=== PATIENT | male | born 1970 | race Caucasian/White ===

== ENCOUNTER 2022-11-19 10:38 | Observation (INO) ==
--- NOTE | 2022-11-19 11:37 | DR.ABDMALE ---
HPI Time seen Time Seen by Provider: 11/19/22 11:33 PCP Primary Care Physician: DR BAUTISTA Complaint Chief Complaint:: PT C/O 1 WEEK HISTORY OF INTERMITTENT FEVER UP TO 102 ASSOCIATED WITH LEFT SIDED ABDOMINAL PAIN DESCRIBED CONSTANT DULL ACHING PAIN . PAIN IS ASSOCIATED WITH NAUSEA BUT DENIES VOMITING. Self Treatment fo Chief Complaint: PT WAS SEEN BY PCP AND HAS COMPLETED FULL COURSE OF CEFDINIR. PT HAD LABS DRAWN AT PCP OFFICE AND WERE ALL WNL EXCEPT ELEVATED LFTS. PT HAS ALSO BEEN ON A SOFT DIET WITH NO IMPROVEMENT OF SYMPTOMS. PT LAST HAD MOTRIN AROUND 930 AM TODAY. COVID-19 Coronavirus risk:travel/contact w/high risk person: No Has patient experienced Coronavirus symptoms: No Reviewed Nurses Notes Review: Yes Mode of arrival Mode of Arrival: Ambulatory Timing Onset of Chief Complaint: 11/13/22 PMH PMH Past Medical History: Yes Past Medical History: Diabetes, Dyslipidemia and Hypertension Past Surgical History: No Family History History of Family Medical Conditions: Yes Family Medical History: Cancer Family Medical History Comment: THROAT CANCER, MULTIPLE SCLEROSIS Social History Does patient currently use any type of tobacco product: Yes Have you used tobacco products in the last 12 months: Yes Type of Tobacco Use: Smokeless Does any household member use tobacco: No Alcohol Use: DAILY Do you use any recreational Drugs:: No Lives With: Spouse Lives Where: Home Travel Risk Coronavirus risk:travel/contact w/high risk person: No Has patient experienced Coronavirus symptoms: No Infectious screening In the last 2 months have you had wt loss of >10#?: NO Have you had fever, night sweats or hemotysis?: No Have you traveled outside the country in the last 6 months?: No Isolation: Standard ROS Review of Systems Constitutional: No Symptoms Reported Eyes: No Symptoms Reported ENTM: No Symptoms Reported Respiratoy: No Symptoms Reported Cardiovascular: No Symptoms Reported Gastrointestinal/Abdominal: No Symptoms Reported Genitourinary: No Symptoms Reported Neurological: No Symptoms Reported Musculoskeletal: No Symptoms Reported Integumentary: No Symptoms Reported Hematologic/Lymphatic: No Symptoms Reported Endocrine: No Symptoms Reported Psychiatric: No Symptoms Reported All Other Systems: Reviewed and Negative PE Vital Signs Vital Signs: Temp Pulse Resp BP Pulse Ox O2 Del Method 11/19/22 14:28 18 11/19/22 10:50 98.2 F 81 20 113/77 98 Room Air General Limitations: No Limitations General Appearance: Alert Head Head Exam: Normal Inspection Eyes Eye exam: Normal Appearance ENT ENT Exam: Normal Exam Neck Neck Exam: Normal Inspection Chest Chest Inspection: Normal Inspection Respiratory Respiratory Exam: Normal Lung Sounds Bilat Cardiovascular Cardiovascular Exam: Regular Rate Abdominal Exam Abdominal Exam: Normal Inspection Rectal Rectal Exam: Deferred Back Back Exam: Normal Inspection Extremeties Extremities Exam: Normal Inspection Exam: Male: Normal Inspection Neurologic Neurological Exam: Alert Psychiatric Psychiatric Exam: Normal Affect Skin Skin Exam: Intact ROR Labs Reviewed Result Diagrams: 11/19/22 11:58 11/19/22 11:58 Laboratory: WBC 4.4 X10^3/uL (3.6-10.0) 11/19/22 11:58 RBC 5.07 X10^6/uL (4.7-6.0) 11/19/22 11:58 Hgb 15.9 g/dL (13.5-18.0) 11/19/22 11:58 Hct 44.6 % (42.0-54.0) 11/19/22 11:58 MCV 88.0 fL (80.0-100.0) 11/19/22 11:58 MCH 31.3 pg (27.0-34.0) 11/19/22 11:58 MCHC 35.5 g/dL (33.0-35.0) H 11/19/22 11:58 RDW 12.5 % (11.6-16.5) 11/19/22 11:58 Plt Count 189 X10^3/uL (150.0-450.0) 11/19/22 11:58 MPV 7.6 fL (7.4-11.0) 11/19/22 11:58 Neut % (Auto) 77.5 % (42.0-75.0) H 11/19/22 11:58 Lymph % (Auto) 10.4 % (21.0-51.0) L 11/19/22 11:58 [place] % (Auto) 10.7 % (0.0-13.0) 11/19/22 11:58 Eos % (Auto) 0.7 % (0.9-2.9) L 11/19/22 11:58 Baso % (Auto) 0.7 % (0.2-1.0) 11/19/22 11:58 Neut # (Auto) 3.4 x10^3/uL (2.2-4.8) 11/19/22 11:58 Lymph # (Auto) 0.5 X10^3/uL (1.3-2.9) L 11/19/22 11:58 [place] # (Auto) 0.5 x10^3/uL (0.3-0.8) 11/19/22 11:58 Eos # (Auto) 0.0 x10^3/uL (0.0-0.2) 11/19/22 11:58 Baso # (Auto) 0.0 X10^3/uL (0.0-0.1) 11/19/22 11:58 Absolute Nucleated RBC 0.0 /100WBC 11/19/22 11:58 Sodium 134 mmol/L (136-145) L 11/19/22 11:58 Corrected Sodium 134 mmol/L (136-145) L 11/19/22 11:58 Potassium 4.4 mmol/L (3.5-5.1) 11/19/22 11:58 Chloride 96 mmol/L (98-107) L 11/19/22 11:58 Carbon Dioxide 29.5 mmol/L (21-32) 11/19/22 11:58 BUN 18 mg/dL (7-18) 11/19/22 11:58 Creatinine 1.14 mg/dL (0.70-1.30) 11/19/22 11:58 Est GFR (MDRD) Af Amer > 60 (>60) 11/19/22 11:58 Est GFR (MDRD) Non-Af > 60 (>60) 11/19/22 11:58 Glucose 113 mg/dL (65-99) H 11/19/22 11:58 Calcium 9.4 mg/dL (8.5-10.1) 11/19/22 11:58 Corrected Calcium TNP 11/19/22 11:58 Total Bilirubin 1.70 mg/dL (0.2-1.0) H 11/19/22 11:58 AST 75 Units/L (15-37) H 11/19/22 11:58 ALT 171 Units/L (12-78) H 11/19/22 11:58 Alkaline Phosphatase 147 Units/L (46-116) H 11/19/22 11:58 Total Protein 8.1 g/dL (6.4-8.2) 11/19/22 11:58 Albumin 4.1 g/dL (3.4-5.0) 11/19/22 11:58 Globulin 4.0 g/dL (2.5-4.5) 11/19/22 11:58 Albumin/Globulin Ratio 1.0 Ratio (1.1-2.1) L 11/19/22 11:58 Amylase 50 Units/L (25-115) 11/19/22 11:58 Lipase 224 Units/L (73-393) 11/19/22 11:58 Specimen Type Clean catch urine 11/19/22 12:25 Urine Color Yellow (YELLOW) 11/19/22 12:25 Urine Appearance Clear (CLEAR) 11/19/22 12:25 Urine pH 5.0 (5.0 - 8.0) 11/19/22 12:25 Ur Specific [place] 1.010 (1.000-1.030) 11/19/22 12:25 Urine Protein Negative (NEGATIVE) 11/19/22 12:25 Urine Glucose (UA) 4+ (NEGATIVE) 11/19/22 12:25 Urine Ketones 3+ (NEGATIVE) 11/19/22 12:25 Urine Blood Negative (NEGATIVE) 11/19/22 12:25 Urine Nitrite Negative (NEGATIVE) 11/19/22 12:25 Urine Bilirubin Negative (NEGATIVE) 11/19/22 12:25 Urine Urobilinogen Normal (NORMAL) 11/19/22 12:25 Ur Leukocyte Esterase Negative (NEGATIVE) 11/19/22 12:25 Urine RBC None seen /HPF (0-3) 11/19/22 12:25 Urine WBC None seen /HPF (0-5) 11/19/22 12:25 Ur Squamous Epith Cells Rare /HPF (NEGATIVE) 11/19/22 12:25 Urine Bacteria Negative /HPF (NEGATIVE) 11/19/22 12:25 Ur Culture Indicated? No/not indicated 11/19/22 12:25 Opioid Opioid Risk Tool Age (Esteban box if 16-45): No History of Preadolescent Sexual Abuse: No Total: 0 Total Score Risk Category: Low Risk Copyright: Alireza GAYLE predicting aberrant behaviors Discharge Plan Discharge Plan Patient Disposition: 01 HOME, SELF-CARE Condition: Stable
[2022-11-19 12:04] LABS: BASOPHILS % (AUTO) 0.7 % (0.2-1.0); EOSINOPHILS % (AUTO) 0.7 % (0.9-2.9); HEMATOCRIT 44.6 % (42.0-54.0); HEMOGLOBIN 15.9 g/dL (13.5-18.0); LYMPHOCYTES # (AUTO) 0.5 X10^3/uL (1.3-2.9); LYMPHOCYTES % (AUTO) 10.4 % (21.0-51.0); MEAN CORPUSCULAR HEMOGLOBIN 31.3 pg (27.0-34.0); MEAN CORPUSCULAR HGB CONC 35.5 g/dL (33.0-35.0); MEAN PLATELET VOLUME 7.6 fL (7.4-11.0); MONOCYTES # (AUTO) 0.5 x10^3/uL (0.3-0.8); MONOCYTES % (AUTO) 10.7 % (0.0-13.0); NEUTROPHILS # (AUTO) 3.4 x10^3/uL (2.2-4.8); NEUTROPHILS % (AUTO) 77.5 % (42.0-75.0); RED BLOOD COUNT 5.07 X10^6/uL (4.7-6.0); RED CELL DISTRIBUTION WIDTH 12.5 % (11.6-16.5); WHITE BLOOD COUNT 4.4 X10^3/uL (3.6-10.0)
[2022-11-19 12:21] LABS: ALANINE AMINOTRANSFERASE 171 Units/L (12-78); ALBUMIN 4.1 g/dL (3.4-5.0); ALKALINE PHOSPHATASE 147 Units/L (46-116); AMYLASE 50 Units/L (25-115); ASPARTATE AMINO TRANSFERASE 75 Units/L (15-37); BLOOD UREA NITROGEN 18 mg/dL (7-18); CALCIUM 9.4 mg/dL (8.5-10.1); CARBON DIOXIDE 29.5 mmol/L (21-32); CHLORIDE 96 mmol/L (98-107); COR NA(FOR HYPERGLY) 134 mmol/L (136-145); CREATININE 1.14 mg/dL (0.70-1.30); LIPASE 224 Units/L (73-393); SODIUM 134 mmol/L (136-145); TOTAL PROTEIN 8.1 g/dL (6.4-8.2); eGFR NON BLACK RACES > 60 (>60)
--- NOTE | 2022-11-19 12:28 | CT ---
HISTORYNausea, fever, abdominal painSTUDYCT abdomen pelvis without contrastTechnique: Axial noncontrast images with coronal and sagittal reformats. Dose reduction procedures were used with mA/kv adjusted for body size. THIS EXAMINATION IS LIMITED DUE TO THE LACK OF INTRAVENOUS AND oral contrast. The examination was performed in this manner at the sole discretion of the ordering caregiver.COMPARISONNoneFINDINGSThe lung bases are clear. The liver, spleen, adrenal glands, and pancreas are within normal limits but only to the limitations of an unenhanced examination. Cholelithiasis is present. There is no evidence for cholecystitis. The kidneys are unobstructed and without stones. No ureteral calculi are identified. The appendix is normal. Abdominal aorta is normal in caliber. No enlarged intraperitoneal or retroperitoneal lymphadenopathy of significance is identified. There are no findings suggestive of enteritis, colitis, or diverticulitis. Examination of the pelvis demonstrated no evidence for pelvic masses, pelvic fluid, or pelvic lymphadenopathy. No bladder abnormality is identified. No lytic or blastic skeletal lesions of significance are identified. There is bilateral spondylolysis at L5 without evidence for spondylolisthesis.IMPRESSIONNo acute intra-abdominal or intrapelvic abnormality identified but only to the limitations of an examination performed without intravenous and without oral contrastCholelithiasis without evidence for cholecystitisBilateral spondylolysis at L5 without evidence for significant spondylolisthesis.Electronically signed by: ELOY CHEN (Nov 19, 2022 12:26:35)
[2022-11-19 12:34] LABS: BILIRUBIN,URINE NEGATIVE (NEGATIVE); BLOOD/HEMOGLOBIN,URINE NEGATIVE (NEGATIVE); GLUCOSE, URINE 4+ (NEGATIVE); KETONES,URINE 3+ (NEGATIVE); LEUKOCYTE ESTERASE ,URINE NEGATIVE (NEGATIVE); NITRITES,URINE NEGATIVE (NEGATIVE); PROTEIN,URINE NEGATIVE (NEGATIVE); UROBILINOGEN,URINE NORMAL (NORMAL)
[2022-11-19 12:39] LABS: APPEARANCE,URINE CLEAR (CLEAR); COLOR,URINE YELLOW (YELLOW)
[2022-11-19 12:43] LABS: BACTERIA,URINE NEGATIVE /HPF (NEGATIVE); RBC,URINE NONE SEEN /HPF (0-3); SQUAMOUS EPITHELIAL CELL,UR RARE /HPF (NEGATIVE)
[2022-11-19] MEDS ORDERED: NS 1,000 ML IV 1,000 ML ONE (15:00)
[2022-11-19] MEDS ORDERED: LEVAQUIN PREMIX IV 750 MG 750 MG/150 ML BAG IV ONE ×3 (15:00→15:06)
[2022-11-19] MEDS ORDERED: LEVAQUIN TAB 750 MG PO SCH (15:00)
[2022-11-19] MEDS ORDERED: ZOFRAN INJ 4 MG VIAL IVP PRN (15:06)
[2022-11-19] MEDS: NS 1,000 ML IV 1,000 ML IV SCH (15:07)
[2022-11-19 16:29] VITALS: BMI 26.6
[2022-11-19] MEDS: REQUIP PO SCH (21:28)
[2022-11-19] MEDS ORDERED: TYLENOL 325 MG TAB PO PRN (21:40)
[2022-11-20] MEDS: NS 1,000 ML IV 1,000 ML IV SCH ×3 (03:55→11:35)
[2022-11-20 06:03] LABS: BASOPHILS % (AUTO) 0.6 % (0.2-1.0); EOSINOPHILS % (AUTO) 1.3 % (0.9-2.9); LYMPHOCYTES # (AUTO) 0.7 X10^3/uL (1.3-2.9); LYMPHOCYTES % (AUTO) 18.4 % (21.0-51.0); MEAN CORPUSCULAR HEMOGLOBIN 30.7 pg (27.0-34.0); MEAN CORPUSCULAR HGB CONC 35.4 g/dL (33.0-35.0); MEAN CORPUSCULAR VOLUME 86.8 fL (80.0-100.0); MEAN PLATELET VOLUME 8.1 fL (7.4-11.0); MONOCYTES # (AUTO) 0.5 x10^3/uL (0.3-0.8); MONOCYTES % (AUTO) 14.7 % (0.0-13.0); NEUTROPHILS # (AUTO) 2.4 x10^3/uL (2.2-4.8); RED CELL DISTRIBUTION WIDTH 12.2 % (11.6-16.5); WHITE BLOOD COUNT 3.6 X10^3/uL (3.6-10.0)
[2022-11-20 06:11] LABS: HEMOGLOBIN 13.8 g/dL (13.5-18.0)
[2022-11-20 06:28] LABS: ALANINE AMINOTRANSFERASE 143 Units/L (12-78); ALBUMIN 3.4 g/dL (3.4-5.0); ALKALINE PHOSPHATASE 137 Units/L (46-116); AMYLASE 43 Units/L (25-115); ASPARTATE AMINO TRANSFERASE 64 Units/L (15-37); BLOOD UREA NITROGEN 18 mg/dL (7-18); CALCIUM 9.1 mg/dL (8.5-10.1); CARBON DIOXIDE 27.4 mmol/L (21-32); CHLORIDE 100 mmol/L (98-107); CREATININE 1.08 mg/dL (0.70-1.30); LIPASE 182 Units/L (73-393); SODIUM 134 mmol/L (136-145); TOTAL PROTEIN 6.9 g/dL (6.4-8.2); eGFR NON BLACK RACES > 60 (>60)
--- NOTE | 2022-11-20 06:32 | RAD ---
HISTORYcough, feverSTUDYCHEST, 1 VIEWCOMPARISONNoneTECHNIQUEPA or AP view of the chestFINDINGSThe cardiac and mediastinal contours are within normal limits. The lungs are radiographically clear without focal consolidation or segmental collapse. No pleural effusion or pneumothorax.IMPRESSIONNo acute pulmonary process radiographically.Electronically signed by: Duglas Sanford (Nov 20, 2022 06:31:06)
--- NOTE | 2022-11-20 08:11 | EKG ---
Test Reason : surgery Blood Pressure : */* mmHG Vent. Rate : 77 BPM Atrial Rate : 77 BPM P-R Int : 152 ms QRS Dur : 84 ms QT Int : 370 ms P-R-T Axes : 61 38 40 degrees QTc Int : 418 ms Normal sinus rhythm Normal ECG No previous ECGs available Confirmed by Jose Sibley ([id number]) on 11/21/2022 8:28:37 AM Referred By: Confirmed By: Jose Sibley
[2022-11-20] MEDS ORDERED: GLUCOPHAGE XR 24-HR PO SCH (09:00)
[2022-11-20] MEDS ORDERED: ZESTRIL TAB 20 MG PO SCH (09:00)
[2022-11-20] MEDS ORDERED: INVOKANA PO SCH (09:00)
[2022-11-20] MEDS ORDERED: CRESTOR TAB 10 MG PO SCH (09:00)
[2022-11-20] MEDS ORDERED: LEVAQUIN PREMIX IV 750 MG 750 MG/150 ML BAG IV SCH (09:00)
[2022-11-20] MEDS ORDERED: ZESTRIL TAB 20 MG ONE (09:51)
[2022-11-20] MEDS: REQUIP PO SCH (11:34)
[2022-11-20 16:04] VITALS: BP 110/65
--- NOTE | 2022-11-20 16:05 | DR.PROGNOT ---
HOSPITAL PROGRESS NOTE Progress Note for Day of: Progress Note Date: 11/20/22 Chief Complaint Chief Complaint: only mild abdominal pain . no nausea , no vomiting . still having mild elevated liver enzymes and bilirubin . afebrile .. History of Present Illness History of Present Illness: no changes Past Medical Family Social History Past Med/Fam/Surg Hx: No changes since H&P Allergies: Allergies No Known Allergies Allergy (Verified 11/19/22 10:56) Review Of Systems ROS: No change since H&P Vital Signs Vital Signs: Temperature 98.6 F Pulse Rate [Left Radial] 75 Pulse Rate 94 Respiratory Rate 20 Blood Pressure [Left Arm] 119/69 Blood Pressure 113/77 O2 Sat by Pulse Oximetry 98 Physical Exam Respiratory: Normal Cardiovascular: Normal GI:Auscultation: Normal Speech Pattern: Clear and Appropriate Laboratory and Diagnostics Result Diagrams: 11/20/22 05:36 11/20/22 05:36 Labs: Laboratory WBC 3.6 X10^3/uL (3.6-10.0) 11/20/22 05:36 RBC 4.50 X10^6/uL (4.7-6.0) L 11/20/22 05:36 Hgb 13.8 g/dL (13.5-18.0) D 11/20/22 05:36 Hct 39.0 % (42.0-54.0) L 11/20/22 05:36 MCV 86.8 fL (80.0-100.0) 11/20/22 05:36 MCH 30.7 pg (27.0-34.0) 11/20/22 05:36 MCHC 35.4 g/dL (33.0-35.0) H 11/20/22 05:36 RDW 12.2 % (11.6-16.5) 11/20/22 05:36 Plt Count 184 X10^3/uL (150.0-450.0) 11/20/22 05:36 MPV 8.1 fL (7.4-11.0) 11/20/22 05:36 Neut % (Auto) 65.0 % (42.0-75.0) 11/20/22 05:36 Lymph % (Auto) 18.4 % (21.0-51.0) L 11/20/22 05:36 [place] % (Auto) 14.7 % (0.0-13.0) H 11/20/22 05:36 Eos % (Auto) 1.3 % (0.9-2.9) 11/20/22 05:36 Baso % (Auto) 0.6 % (0.2-1.0) 11/20/22 05:36 Neut # (Auto) 2.4 x10^3/uL (2.2-4.8) 11/20/22 05:36 Lymph # (Auto) 0.7 X10^3/uL (1.3-2.9) L 11/20/22 05:36 [place] # (Auto) 0.5 x10^3/uL (0.3-0.8) 11/20/22 05:36 Eos # (Auto) 0.0 x10^3/uL (0.0-0.2) 11/20/22 05:36 Baso # (Auto) 0.0 X10^3/uL (0.0-0.1) 11/20/22 05:36 Absolute Nucleated RBC 0.0 /100WBC 11/20/22 05:36 Sodium 134 mmol/L (136-145) L 11/20/22 05:36 Corrected Sodium TNP 11/20/22 05:36 Potassium 4.4 mmol/L (3.5-5.1) 11/20/22 05:36 Chloride 100 mmol/L (98-107) 11/20/22 05:36 Carbon Dioxide 27.4 mmol/L (21-32) 11/20/22 05:36 BUN 18 mg/dL (7-18) 11/20/22 05:36 Creatinine 1.08 mg/dL (0.70-1.30) 11/20/22 05:36 Est GFR (MDRD) Af Amer > 60 (>60) 11/20/22 05:36 Est GFR (MDRD) Non-Af > 60 (>60) 11/20/22 05:36 Glucose 106 mg/dL (65-99) H 11/20/22 05:36 Calcium 9.1 mg/dL (8.5-10.1) 11/20/22 05:36 Corrected Calcium TNP 11/20/22 05:36 Total Bilirubin 1.40 mg/dL (0.2-1.0) H 11/20/22 05:36 AST 64 Units/L (15-37) H 11/20/22 05:36 ALT 143 Units/L (12-78) H 11/20/22 05:36 Alkaline Phosphatase 137 Units/L (46-116) H 11/20/22 05:36 Total Protein 6.9 g/dL (6.4-8.2) 11/20/22 05:36 Albumin 3.4 g/dL (3.4-5.0) 11/20/22 05:36 Globulin 3.5 g/dL (2.5-4.5) 11/20/22 05:36 Albumin/Globulin Ratio 1.0 Ratio (1.1-2.1) L 11/20/22 05:36 Amylase 43 Units/L (25-115) 11/20/22 05:36 Lipase 182 Units/L (73-393) 11/20/22 05:36 Specimen Type Clean catch urine 11/19/22 12:25 Urine Color Yellow (YELLOW) 11/19/22 12:25 Urine Appearance Clear (CLEAR) 11/19/22 12:25 Urine pH 5.0 (5.0 - 8.0) 11/19/22 12:25 Ur Specific [place] 1.010 (1.000-1.030) 11/19/22 12:25 Urine Protein Negative (NEGATIVE) 11/19/22 12:25 Urine Glucose (UA) 4+ (NEGATIVE) 11/19/22 12:25 Urine Ketones 3+ (NEGATIVE) 11/19/22 12:25 Urine Blood Negative (NEGATIVE) 11/19/22 12:25 Urine Nitrite Negative (NEGATIVE) 11/19/22 12:25 Urine Bilirubin Negative (NEGATIVE) 11/19/22 12:25 Urine Urobilinogen Normal (NORMAL) 11/19/22 12:25 Ur Leukocyte Esterase Negative (NEGATIVE) 11/19/22 12:25 Urine RBC None seen /HPF (0-3) 11/19/22 12:25 Urine WBC None seen /HPF (0-5) 11/19/22 12:25 Ur Squamous Epith Cells Rare /HPF (NEGATIVE) 11/19/22 12:25 Urine Bacteria Negative /HPF (NEGATIVE) 11/19/22 12:25 Ur Culture Indicated? No/not indicated 11/19/22 12:25 Problem Patient Problems: calculus cholecystitis . liver dysfunction to advance diet . awaiting hepatitis panel . lap marina in the future .
--- NOTE | 2022-11-20 21:54 | US ---
HISTORYReason For StudySTUDYGALL BLADDERCOMPARISONTECHNIQUEMultiple green scale and color flow Doppler images of the right upper quadrant were obtained.FINDINGSThere is coarsening of the liver echotexture suggestive of fatty infiltration. There is no intrahepatic mass or biliary duct dilation. There is blood flow in the portal vein, hepatic artery, and a pack vein in the appropriate direction. There is cholelithiasis. The gallbladder wall thickness is normal and there is no pericholecystic fluid. The common bile duct measures 4 mm in diameter which is normal for age.IMPRESSION1. Fatty infiltration of the liver. 2. Cholelithiasis without convincing evidence for cholecystitis.Electronically signed by: Jarad Connors (Nov 20, 2022 21:53:11)
== END 2022-11-20 18:20 | disposition home or self-care (01) ==
LOC: ER 10:38 → MED/SURG 10:38
PROVIDERS: ADMIT Surgery; ATTEND Surgery
DX: R94.5 Abnormal results of liver function studies; R10.84 Generalized abdominal pain; I10 Essential (primary) hypertension; K80.80 Other cholelithiasis without obstruction; E11.65 Type 2 diabetes mellitus with hyperglycemia; R79.89 Other specified abnormal findings of blood chemistry; E78.2 Mixed hyperlipidemia; R50.9 Fever, unspecified